=== PATIENT | male | born 1955 | race Caucasian/White ===

== ENCOUNTER 2018-10-17 00:45 | Inpatient (IN) | payer BC | END 2018-10-19 17:05 | disposition home or self-care (01) | LOC: ER 00:45 → PCU 3S 04:04 ==

== ENCOUNTER 2024-05-07 04:01 | Emergency (ER) | payer BC, MEDICARE ==
[~2024-05-07] VITALS: Ht 177.8 cm; Wt 84.1 kg
[~2024-05-07 04:01] MED LIST: AMI200T PO; ASPI81TA52 PO; ATOR40TA PO; COU1T PO; IRON PO; LISI5TAB PO; LOP25T PO; PRED5TAB49 PO; SEVE800T8 PO; TACR1CAP24 PO; VITAMIN D3 PO
[2024-05-07 04:58] LABS: ALANINE AMINOTRANSFERASE 43 U/L (12-78); ALBUMIN 2.7 G/DL (3.4-5.0); ALBUMIN/GLOBULIN RATIO 0.7 (1.1-1.5); ALKALINE PHOSPHATASE 82 IU/L (46-116); ANION GAP 11 (8-16); BILIRUBIN,TOTAL 1.1 MG/DL (0.1-1.0); BLOOD UREA NITROGEN 56 MG/DL (7-18); BUN/CREATININE RATIO 28.3 (10.0-20.0); CALCIUM 8.7 MG/DL (8.5-10.1); CHLORIDE 99 MMOL/L (99-107); CREATININE 1.98 MG/DL (0.60-1.10); GLUCOSE 157 MG/DL (70-104); SODIUM 130 MMOL/L (135-145); TOTAL CARBON DIOXIDE 20.2 MMOL/L (24-32); TOTAL PROTEIN 6.8 G/DL (6.4-8.2); eCRCL 37 ML/MIN; eGFR 34 ML/MIN
[2024-05-07 05:06] LABS: PRO BRAIN NATRIURETIC PEPTIDE 4967 PG/ML (0-125)
[2024-05-07] MEDS: ondansetron/PF 4mg/2ml inj IV ONE (05:09)
[2024-05-07] MEDS: morphine 4 MG/ML inj SYRINge IV ONE (05:09)
[2024-05-07 05:13] LABS: ASPARTATE AMINO TRANSFERASE 64 U/L (10-37); CREATINE KINASE 159 U/L (39-308); POTASSIUM 3.9 MMOL/L (3.5-5.1)
[2024-05-07] MEDS ORDERED: VANCOMYCIN 1GM 200ML H20 (PEG) 200 ML IV ONE (05:40)
[2024-05-07] MEDS ORDERED: piperacillin/tazo 3.375gm/50ml 50 ML IV ONE (05:40)
[2024-05-07 09:04] LABS: BASOPHILS % (AUTO) 0.2 % (0-1); EOSINOPHILS # (AUTO) 0.1 X10'3 (0-0.9); EOSINOPHILS % (AUTO) 0.7 % (0-6); HEMATOCRIT 33.6 % (42.0-52.0); HEMOGLOBIN 10.9 g/dl (14.0-17.9); LYMPHOCYTES # (AUTO) 0.2 X10'3 (1.1-4.8); LYMPHOCYTES % (AUTO) 1.7 % (21-51); MEAN CORPUSCULAR HEMOGLOBIN 29.5 PG (27.0-31.0); MEAN CORPUSCULAR HGB CONC 32.3 g/dL (33.0-36.5); MEAN CORPUSCULAR VOLUME 91.4 FL (78-98); MEAN PLATELET VOLUME 7.9 FL (7.4-10.4); MONOCYTES # (AUTO) 0.7 X10'3 (0-0.9); NEUTROPHILS # (AUTO) 12.3 X10'3 (1.8-7.7); NEUTROPHILS % (AUTO) 92.4 % (42-75); PLATELET COUNT 83 X10'3 (140-440); RED BLOOD COUNT 3.68 X10'6 (4.70-6.10); RED CELL DISTRIBUTION WIDTH 14.1 % (11.5-14.5); WHITE BLOOD COUNT 13.4 X10'3 (4.5-11.0)
[2024-05-07] MEDS: acetaminophen 1,000mg/100ml IV 100 ML IV ONE ×2 (09:21→14:34)
[2024-05-07] MEDS: normal saline 1000ml 1,000 ML IV ONE (09:21)
[2024-05-07] MEDS ORDERED: cefepime 1GM/NS ADD-VANTAGE 100 ML IV ONE (09:35)
[2024-05-07] MEDS ORDERED: heparin 10,000 units/1 ML INJ IV PRN (09:50)
[2024-05-07] MEDS: VANCOMYCIN/WATER FOR INJ (PEG) 750MG/150 ML IVPB IV ONE (09:51)
[2024-05-07] MEDS: cefepime 1GM in D5W 50mL 50 ML IV ONE (09:51)
[2024-05-07] MEDS: HEPARIN DRIP-CARDIAC**PHARMACIST-TO-DOSE IV ONE (09:59)
[2024-05-07 10:12] LABS: APTT 52 SECONDS (22-32); PROTHROMBIN TIME 44.3 SECONDS (9.0-12.0)
[2024-05-07] MEDS: heparin 10,000 units/1 ML INJ IV ONE (10:15)
[2024-05-07] MEDS: heparin 25,000 UNIT/250ml bag 250 ML IV PRN (10:20)
[2024-05-07 10:22] LABS: INR 4.7 INR
[2024-05-07] MEDS: MESSAGE TO NURSING IV ONE (10:42)
[2024-05-07 11:11] VITALS: BP 129/45; PULSE 80; TEMP 99.3; O2SAT 92
[2024-05-07 11:15] LABS: BILIRUBIN,URINE SMALL (Neg); CLARITY,URINE CLEAR (Clear); COLOR,URINE YELLOW (Yellow); GLUCOSE, URINE NEGATIVE (Neg); KETONES,URINE TRACE mg/dl (Neg); LEUKOCYTE ESTERASE ,URINE NEGATIVE (Neg); NITRITES, URINE NEGATIVE (Neg); OCCULT BLOOD,URINE NEGATIVE (Neg); PH,URINE 5.5 (4.8-8.0); PROTEIN,URINE 30 mg/dl (Neg); UROBILINOGEN,URINE 0.2 E.U/dL (0.2-1.0)
[2024-05-07 11:21] LABS: UA COLLECTION TYPE URINAL
[2024-05-07 11:23] LABS: RBC,URINE NONE SEEN /HPF (0-2); WBC,URINE 0-4 /HPF (0-4)
[2024-05-07 11:24] LABS: BACTERIA,URINE NONE SEEN /HPF (Neg); HYALINE CASTS 0-3 /LPF (NEGATIVE); MUCUS STRANDS NONE SEEN /LPF (Neg); SQUAMOUS EPITHELIAL CELL,UR FEW /LPF (FEW)
[2024-05-07 11:25] LABS: CELLULAR CAST 0-4 /LPF (NEGATIVE); COARSE GRANULAR CAST 0-3 /LPF (NEGATIVE)
[2024-05-07 12:15] VITALS: RESP 20
[2024-05-07] MEDS ORDERED: acetaminophen 1,000mg/100ml IV 100 ML IV SCH ×2 (14:20→20:00)
== END 2024-05-07 17:45 | disposition short-term general hospital (02) ==
LOC: ER 04:03
DX: I77.0 Arteriovenous fistula, acquired (principal); I25.10 Atherosclerotic heart disease of native coronary artery without angina pectoris; N18.9 Chronic kidney disease, unspecified; G54.0 Brachial plexus disorders; I48.91 Unspecified atrial fibrillation; Z88.1 Allergy status to other antibiotic agents; Z88.8 Allergy status to other drugs, medicaments and biological substances; Z79.899 Other long term (current) drug therapy; Z94.0 Kidney transplant status; Z79.01 Long term (current) use of anticoagulants; Z95.2 Presence of prosthetic heart valve; Z95.1 Presence of aortocoronary bypass graft
CPT/HCPCS: 36415; 71045; 80053; 80197; 81001; 82550; 83605; 83880; 84145; 84484; 85025; 85610; 85730; 87040; 93005; 93931; 93971; 96365; 96366; 96368; 96375; 96376; 99291; J0131; J0692; J1644; J2270; J2405; J3372; J7030; A4615; A6449; C1751